=== PATIENT | male | born 1965 | race Hispanic/Latino ===

== ENCOUNTER 2020-05-15 09:44 | Emergency (ER) | payer SELFPAY ==
[2020-05-15 10:27] LABS: BASOPHILS % (AUTO) 0.2 % (0.0-5.0); HEMATOCRIT 49.4 % (42-54); LYMPHOCYTES % (AUTO) 16.4 % (21.0-51.0); MEAN CORPUSCULAR HEMOGLOBIN 28.2 pg (27.0-33.0); MEAN CORPUSCULAR HGB CONC 33.8 g/dL (32.0-36.0); MEAN CORPUSCULAR VOLUME 83.3 fL (79-99); MONOCYTES % (AUTO) 9.2 % (3.0-13.0); NEUTROPHILS % (AUTO) 71.8 % (40.0-77.0); PLATELET COUNT (AUTO) 107 K/uL (130-400); RED BLOOD CELL COUNT(AUTO) 5.93 MIL/uL (4.50-6.20); RED CELL DISTRIBUTION WIDTH 12.5 % (11.0-15.5); WHITE BLOOD COUNT (AUTO) 4.9 K/uL (4.8-10.8)
[2020-05-15 10:33] LABS: CREATININE 1.3 mg/dL (0.5-1.5)
[2020-05-15 10:34] LABS: INR 1.02 (0.85-1.15); PROTHROMBIN TIME 11.1 SEC (9.6-11.6)
[2020-05-15 10:36] LABS: PARTIAL THROMBOPLASTIN TIME 26.3 SEC (26.3-35.5)
[2020-05-15 10:37] LABS: ALBUMIN 4.3 g/dL (3.5-5.0); BILIRUBIN,TOTAL 0.7 mg/dL (0.2-1.0); TOTAL PROTEIN, SERUM 8.2 g/dL (6.0-8.3)
[2020-05-15] MEDS ORDERED: FENTANYL CITRATE PF 50 MCG/1 ML 2ML VIAL ONE (11:04)
[2020-05-15] MEDS ORDERED: IOHEXOL-350 75 ML VIAL IV ONE (11:15)
== END 2020-05-15 13:43 | disposition home or self-care (01) ==
LOC: EDH 09:44
DX: K42.9 Umbilical hernia without obstruction or gangrene (principal); K52.9 Noninfective gastroenteritis and colitis, unspecified; N13.2 Hydronephrosis with renal and ureteral calculous obstruction; D69.6 Thrombocytopenia, unspecified
CPT/HCPCS: 36415; 74177; 80053; 83605; 83690; 85025; 85610; 85730; 96374; 99285; J3010; Q9967

== ENCOUNTER 2023-04-10 13:29 | Emergency (ER) | payer OTHER ==
[~2023-04-10] VITALS: Ht 180.3 cm; Wt 114.3 kg
[2023-04-10] MEDS ORDERED: MORPHINE 4 MG SYG IM ONE (14:30)
[2023-04-10] MEDS ORDERED: KETOROLAC 60 MG VIAL (30MG/ML) IM ONE (14:30)
[2023-04-10] MEDS ORDERED: GABA-529 PO (15:31)
[2023-04-10] MEDS ORDERED: ACYC-138 PO (15:31)
[2023-04-10] MEDS ORDERED: [UNRECOGNIZED DRUG - CODE] TP (15:31)
[2023-04-10] MEDS ORDERED: ACET-2079 PO (15:31)
[2023-04-10] MEDS ORDERED: NITROGLYCERIN 1GM OINT 1 INCH/1GM TD ONE (16:00)
[2023-04-10 17:06] VITALS: BP 153/102; PULSE 78; RESP 18; O2SAT 99
== END 2023-04-10 17:17 | disposition home or self-care (01) ==
LOC: EDH 13:29
DX: B02.9 Zoster without complications (principal); I10 Essential (primary) hypertension; Z79.899 Other long term (current) drug therapy
CPT/HCPCS: 99285; 71045; 96372 ×2; J2270; J1885

== ENCOUNTER 2024-10-17 09:48 | Emergency (ER) | payer OTHER ==
[~2024-10-17] VITALS: Ht 180.3 cm; Wt 115.2 kg
[~2024-10-17 09:48] MED LIST: ACET-2079 PO; ACYC-138 PO; GABA-529 PO; [UNRECOGNIZED DRUG - CODE] TP
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
[2024-10-17] MEDS: ORPHENADRINE 60MG/2ML IM ONE (10:47)
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
[2024-10-17] MEDS ORDERED: NAPR-1196 PO (11:24)
[2024-10-17] MEDS ORDERED: ORPH100T4 PO (11:24)
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
[2024-10-17 11:56] VITALS: BP 151/89; PULSE 85; RESP 20; TEMP 98.1; O2SAT 96
== END 2024-10-17 11:57 | disposition home or self-care (01) ==
LOC: EDH 09:48
DX: S13.4XXA Sprain of ligaments of cervical spine, initial encounter (principal); S46.912A Strain of unspecified muscle, fascia and tendon at shoulder and upper arm level, left arm, initial encounter; S46.911A Strain of unspecified muscle, fascia and tendon at shoulder and upper arm level, right arm, initial encounter; I10 Essential (primary) hypertension; Z79.899 Other long term (current) drug therapy; Z98.890 Other specified postprocedural states; V89.2XXA Person injured in unspecified motor-vehicle accident, traffic, initial encounter; Y93.I9 Activity, other involving external motion; Y92.89 Other specified places as the place of occurrence of the external cause; Y99.8 Other external cause status
CPT/HCPCS: 99285; 72125; 71046; 96372 ×2; J1885; J2360